=== PATIENT | male | born 1980 | race Caucasian/White ===

== ENCOUNTER 2020-07-09 17:10 | Emergency (ER) | payer OTHER ==
[~2020-07-09] VITALS: Ht 175.3 cm; Wt 72.6 kg
[~2020-07-09 17:10] MED LIST: FLEXERIL PO; MEDROLDOSEPACK PO; MOBIC7.5 M1 PO; ZOLOFT100 MG PO
[2020-07-09] MEDS ORDERED: NOHOMEMEDICATIONS (17:37)
[2020-07-09] MEDS ORDERED: TRAMADOL 50 MG50 MG PO (18:26)
[2020-07-09] MEDS ORDERED: NAPROSYN500 MG PO (18:26)
[2020-07-09] MEDS ORDERED: NORFLEX100 MG PO (18:26)
[2020-07-09 18:33] VITALS: BP 144/97
--- NOTE | 2020-07-10 07:14 | EKG ---
[place] [address] [facility] [place] [address] ELECTROCARDIOGRAM REPORT Name: ANGEL SPRINGER Room #: [facility]#: [id number] Admission: 07/09/20 Attend Phys: Discharge: 07/09/20 Date of : 78 Report #: [id number] [facility] ED Test Date: 2020-07-09 Test Time: 17:10:59 Pat Name: ANGEL SPRINGER Department: Room: Gender: [employer] Consultant: DUSTIN : 1980 Requested By: Jason Wren Order Number: [id number] MD: Sotero Hadley Measurements Intervals [place] Rate: 81 P: 77 [place]: 144 QRS: 85 QRSD: 87 T: 49 QT: 355 QTc: 412 Interpretive Statements Sinus rhythm LAE, consider biatrial enlargement No previous ECG available for comparison Electronically Signed On 07-10-2020 7:14:29 COMPUTER TECHNOLOGY INSTRUCTOR by Sotero Hadley [email or web address] <ELECTRONICALLY SIGNED> By: Sotero Hadley MD, [facility] 07/10/20 0714 1710 1710 Sotero Hadley MD, FACC /EPI
== END 2020-07-09 18:33 | disposition home or self-care (01) ==
LOC: ER 17:10
DX: M43.6 Torticollis (principal); F17.210 Nicotine dependence, cigarettes, uncomplicated; Z79.899 Other long term (current) drug therapy; Z88.5 Allergy status to narcotic agent